=== PATIENT | female | born 1945 | race American Indian/Alaskan Native ===

== ENCOUNTER 2017-04-15 12:29 | Emergency (ER) | payer OTHER ==
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
[2017-04-15 12:59] VITALS: BP 160/90; PULSE 92; RESP 16; TEMP 98.8; O2SAT 100
[2017-04-15] MEDS ORDERED: TDAP Vaccine 0.5 mL Syr IM ONE (13:04)
[2017-04-15] MEDS ORDERED: Amoxicillin-Clav 875-125 mg Tab PO STA (13:05)
--- NOTE | 2017-04-15 13:54 | RAD ---
PROCEDURE: Right Foot Radiographs. HISTORY: pain COMPARISON: None. FINDINGS: BONES: Normal. No fracture. JOINTS: Mild degenerative changes in the 1st MTP joint SOFT TISSUES: Normal. OTHER FINDINGS: None. IMPRESSION: No acute findings
== END 2017-04-15 13:59 | disposition home or self-care (01) ==
LOC: ED 12:29
DX: M79.674 Pain in right toe(s) (principal)

== ENCOUNTER 2018-08-18 17:11 | Outpatient (CLI) | payer OTHER | END 2018-08-18 17:12 | disposition home or self-care (01) | LOC: CARDIO 17:11 | DX: Z45.010 Encounter for checking and testing of cardiac pacemaker pulse generator [battery] (principal) ==